=== PATIENT | male | born 1985 ===

== ENCOUNTER 2018-06-22 21:28 | Emergency (ER) | payer MEDICAID, OTHER ==
--- NOTE | 2018-06-22 21:37 | Emergency Department Report ---
Blank Doc - Documentation Documentation: This is a 33-year-old male that presents with bilateral knee pain. Stated it locks up. Denies any injuries. This initial assessment diagnostic orders/clinical plan/treatment(s) is/are subject to change based on patient's health status, clinical progression and re-assessment by fellow clinical providers in the ED. Further treatment and workup at subsequent clinical providers discretion. Patient/guardians urged not to elope from ED s their condition may be serious if not clinically assessed and managed. Initial orders include: 1-Patient sent to [facility] for further evaluation and treatment 2- xrays
--- NOTE | 2018-06-22 22:44 | XRay Report ---
FINAL REPORT PROCEDURE: Right and left knees. TECHNIQUE: Three views of each knee. HISTORY: Bilateral knee pain. COMPARISON: No prior studies are available for comparison. FINDINGS: Right knee: The bones appear intact without fracture or dislocation. The joint spaces appear satisfac tory. The soft tissues are unremarkable. There is no evidence of a knee effusion. Left knee: The bones appear intact without fracture or dislocation. The joint spaces appear satisfact ory. The soft tissues are unremarkable. There is no evidence of a knee effusion. IMPRESSION: Normal studies.
--- NOTE | 2018-06-23 01:16 | Emergency Department Report ---
HPI - General Chief Complaint: Extremity Injury, Lower Time Seen by Provider: 06/22/18 21:35 - HPI HPI: [place] 19 The patient is 33-year-old male presenting with a chief complaint of knee pain and suicidal ideation. Patient takes several months he has episodes where his knees "lockup" and he can move them secondary to pain. Patient describes pain as stabbing in nature. The patient also states he is suicidal ideation for a while and states he wants to "choke" himself out. Patient admits to auditory and visual hallucinations. Location: Bilateral knees, mental state Duration: [See above] Quality: Suicidal Severity: Severe Modifying factors: [see above] Context: [see above] Mode of transportation: [not driving] ED Past Medical Hx - Past Medical History Hx Seizures: Yes Hx Psychiatric Treatment: Yes (Schizophrenia, , Bipolar, PTSD) Hx HIV: Yes - Surgical History Past Surgical History?: Yes Additional Surgical History: Bilateral hip surgeries - Family History Family history: no significant - Social History Smoking Status: Current Every Day Smoker Substance Use Type: None ED Review of Systems ROS: Stated complaint: BILATERAL KNEE PAIN Other details as noted in HPI Constitutional: no symptoms reported Eyes: denies: eye pain ENT: denies: throat pain Respiratory: no symptoms reported Cardiovascular: denies: chest pain Endocrine: no symptoms reported Gastrointestinal: denies: abdominal pain Genitourinary: denies: dysuria Musculoskeletal: arthralgia, myalgia Neurological: denies: headache Psychiatric: auditory hallucinations, visual hallucinations, suicidal thoughts. denies: homicidal thoughts Physical Exam - Physical Exam Vital Signs: Vital Signs 06/22/18 21:40 Temperature 98.2 F Pulse Rate 88 Respiratory 18 Rate Blood Pressure 123/63 O2 Sat by Pulse 99 Oximetry Physical Exam: GENERAL: The patient is well-developed well-nourished male lying on stretcher not appearing to be in acute distress. [] HEENT: Normocephalic. Atraumatic. Extraocular motions are intact. Patient has moist mucous membranes. NECK: Supple. Trachea midline CHEST/LUNGS: Clear to auscultation. There is no respiratory distress noted. HEART/CARDIOVASCULAR: Regular. There is no tachycardia. There is no gallop rub or murmur. ABDOMEN: Abdomen is soft, nontender. Patient has normal bowel sounds. There is no abdominal distention. SKIN: There is no rash. There is no edema. There is no diaphoresis. NEURO: The patient is awake, alert, and oriented. The patient is cooperative. The patient has no focal neurologic deficits. The patient has normal speech MUSCULOSKELETAL: There is no evidence of acute injury. ED Course Vital Signs 06/22/18 21:40 Temperature 98.2 F Pulse Rate 88 Respiratory 18 Rate Blood Pressure 123/63 O2 Sat by Pulse 99 Oximetry ED Medical Decision Making - Lab Data Result diagrams: 06/23/18 01:33 06/23/18 01:33 Laboratory Tests 06/23/18 06/23/18 06/23/18 01:33 01:33 01:33 WBC 4.2 L RBC 3.57 L Hgb 10.3 L Hct 31.0 L MCV 87 MCH 29 MCHC 33 RDW 14.5 Plt Count 243 [place] % (Auto) [employer] Sodium 140 Potassium 3.5 L Chloride 102.7 Carbon Dioxide 24 Anion Gap 17 BUN 15 Creatinine 0.5 L Estimated GFR > 60 BUN/Creatinine Ratio 30 Glucose 123 H Calcium 9.2 Magnesium Total Creatine Kinase Salicylates < 0.3 L Acetaminophen Plasma/Serum Alcohol 06/23/18 06/23/18 06/23/18 01:33 01:33 01:33 WBC RBC Hgb Hct MCV MCH MCHC RDW Plt Count [place] % (Auto) Sodium Potassium Chloride Carbon Dioxide Anion Gap BUN Creatinine Estimated GFR BUN/Creatinine Ratio Glucose Calcium Magnesium 1.90 Total Creatine Kinase 94 Salicylates Acetaminophen < 5.0 L Plasma/Serum Alcohol < 0.01 - Radiology Data Radiology results: report reviewed (bilateral knee x-rays), image reviewed (bilateral knee x-ray) interpreted by me: Bilateral knee x-rays-no acute fracture [facility] [address] [place] [address] XRay Report Signed Patient: JAZMYNE PONCE MR#: [id number] : 1985 Acct:[id number] Age/Sex: 33 / M ADM Date: 06/22/18 Loc: ED Attending Dr: Ordering Physician: PELON CHOE NP Date of Service: 06/22/18 Procedure(s): XR knee BILAT 3V Accession Number(s): [id number] cc: PELON CHOE NP Fluoro Time In Minutes: FINAL REPORT PROCEDURE: Right and left knees. TECHNIQUE: Three views of each knee. HISTORY: Bilateral knee pain. COMPARISON: No prior studies are av ailable for comparison. FINDINGS: Right knee: The bones appear intact without fracture or dislocation. The joint spaces appear satisfactory. The soft tissues are unremarkable. There is no evidence of a knee effusion. Left knee: The bones appear intact without fracture or dislocation. The joint spaces appear satisfactory. The soft tissues are unremarkable. There is no evidence of a knee effusion. IMPRESSION: Normal studies. Transcribed By: MRM Dictated By: NICOLÁS OBREGON MD Electronically Authenticated By: NICOLÁS OBREGON MD Signed Date/Time: 06/22/182243 DD/ 42 TD/TT: 06/22/182242 - Differential Diagnosis suicidal ideation, arthritis, rhabdomyolysis, muscle spasm, hypokalemia Critical care attestation.: If time is entered above; I have spent that time in minutes in the direct care of this critically ill patient, excluding procedure time. ED Disposition Clinical Impression: Suicidal ideation, Bilateral knee pain Disposition: DC/TX-65 PSY HOSP/PSY UNIT Is pt being admited?: No Does the pt Need Aspirin: No Condition: Serious Referrals: GAVINO SANDOVAL MD [Primary Care Provider] - 3-5 Days Time of Disposition: 01:17 (awaiting acceptance)
[2018-06-23 01:47] LABS: Hemoglobin 10.3 gm/dl (11.8-15.2); Mean Corpuscular HGB Conc 33 % (32-34); Mean Corpuscular Volume 87 fl (84-94); Platelet Count 243 K/mm3 (140-440); Red Blood Count 3.57 M/mm3 (3.65-5.03); Red Cell Distribution Width 14.5 % (13.2-15.2)
[2018-06-23 02:07] LABS: BUN/Creatinine Ratio 30; Blood Urea Nitrogen 15 mg/dL (9-20); Calcium 9.2 mg/dL (8.4-10.2); Hemolysis Index 6
[2018-06-23 03:04] LABS: Band Neutrophils # (Manual) 0.1 K/mm3; Basophils % (Manual) 0 % (0.0-1.8); Total Cells Counted 100
[2018-06-23 03:05] LABS: Anisocytosis 1+; Hypochromasia 1+
[2018-06-23 03:36] LABS: Bilirubin,Urine NEG (Negative); Blood,Urine NEG (Negative); Color,Urine Yellow (Yellow); Hyaline Casts,Urine 1 /LPF; Mucus,Urine 3+ /HPF; RBC,Urine < 1.0 /HPF (0.0-6.0)
[2018-06-23 03:42] LABS: Amphetamine Screen,Urine PRESUMPTIVE NEGATIVE; Benzodiazepines Screen,Urine PRESUMPTIVE NEGATIVE; Cannabinoid Screen,Urine PRESUMPTIVE NEGATIVE; Cocaine Screen,Urine PRESUMPTIVE NEGATIVE; Methadone Screen,Urine PRESUMPTIVE NEGATIVE; Opiate Screen,Urine PRESUMPTIVE NEGATIVE
--- NOTE | 2018-06-23 16:22 | Consultation ---
History of Present Illness - Reason for Consult Consult date: 06/23/18 Reason for consult: Mental Health Evaluation Requesting physician: TYLER AMBROSE - Chief Complaint Chief complaint: 'I wanted to choke myself" - History of Present Psychiatric Illness 33-year-old AA male presented to the ER for knee pain and SI's. Today the patient is tangent during the assessment. He stated that he is having several medical issues along with having SI's. He stated that he is suicidal because he's from another "galaxy". Also, he stated something about "demons" that wasn't logical. He stated that he cannot bend his knees, but the patient's Xray was normal (knee). He would not answer questions about his mental health when asked. He denies Hi's and AVH's. This patient is a poor historian at this time. Medications and Allergies Allergies Allergy/AdvReac Type Severity Reaction Status Date / Time naproxen [From Naprosyn] Allergy Hives Verified 06/23/18 16:30 risperidone [From Risperdal] Allergy Hives Verified 06/23/18 16:30 sulfamethoxazole Allergy Hives Verified 06/23/18 16:30 [From Bactrim] trimethoprim [From Bactrim] Allergy Hives Verified 06/23/18 16:30 Past psychiatric history - Past Medical History Past Medical History: HIV/AIDS Past Surgical History: No surgical history - past Psychiatric treatment and history psychiatric treatment history: Several inpatient psy settings in the past. Denies a fam psy hx. - Social History Social history: other (Reside at a transitional home) Mental Status Exam - Vital signs Last Vital Signs Temp 98.4 F 06/23/18 10:00 Pulse 80 06/23/18 10:00 Resp 18 06/23/18 11:00 BP 109/71 06/23/18 10:00 Pulse Ox 99 06/23/18 10:00 - Exam Narrative exam: MSE: Appearance: calm Behavior: regular eye contact Speech: regular rate and tone Mood: "okay" Affect: flat Thought Process: tangential, loose associations Thought Content: denies HI's and AVH's, delusional Motor Activity: in bed Cognition: A/O x3 Insight: poor Judgment: poor Results Result Diagrams: 06/23/18 01:33 06/23/18 01:33 Abnormal lab results 06/23/18 06/23/18 06/23/18 Range/Units 01:33 01:33 01:33 WBC 4.2 L (4.5-11.0) K/mm3 RBC 3.57 L (3.65-5.03) M/mm3 Hgb 10.3 L (11.8-15.2) gm/dl Hct 31.0 L (35.5-45.6) % Eosinophils % (Manual) 9.0 H (0.0-4.3) % Lymphocytes # (Manual) 0.8 L (1.2-5.4) K/mm3 Potassium 3.5 L (3.6-5.0) mmol/L Creatinine 0.5 L (0.8-1.5) mg/dL Glucose 123 H (75-100) mg/dL Salicylates < 0.3 L (2.8-20.0) mg/dL Acetaminophen (10.0-30.0) ug/mL 06/23/18 Range/Units 01:33 WBC (4.5-11.0) K/mm3 RBC (3.65-5.03) M/mm3 Hgb (11.8-15.2) gm/dl Hct (35.5-45.6) % Eosinophils % (Manual) (0.0-4.3) % Lymphocytes # (Manual) (1.2-5.4) K/mm3 Potassium (3.6-5.0) mmol/L Creatinine (0.8-1.5) mg/dL Glucose (75-100) mg/dL Salicylates (2.8-20.0) mg/dL Acetaminophen < 5.0 L (10.0-30.0) ug/mL All other labs normal. Assessment and Plan Assessment and plan: Impression: Unspecified Mood DO with psy features. Today the patient is calm, but tangent during the assessment. DDx: Bipolar DO with psychosis, Schizoaffective DO, R/O Factitious DO Recommendation/Plan: Continue 1013 and start Zyprexa 5 mg PO HS for mood/psychosis. Discussed possible metabolic side effects of Zyprexa with the patient reference Zyprexa. Dispo: The patient was referred to inpatient psy services. Staffed with Dr Jarrell.
--- NOTE | 2018-06-24 14:24 | Progress Note ---
Subjective - Reason for Consult Consult date: 06/24/18 Reason for consult: Psychiatric Follow-up Evaluation - Chief Complaint Chief complaint: "Messed up" Patient is a 33-year-old AA male presented to the ER for knee pain and SI's. Today the patient is guarded and anxious during the assessment. He stated, " I'm here for being disorganized and stressed out." He continues to endorse SI's with plan to choke self. Also, patient endorses paranoid delusions, auditory/visual hallucinations. He states, " I see spirits and hear demons." He denies HI's. Reports medication compliance. No side effects noted/reported. Mental Status Exam - Vital signs Last Vital Signs Temp 97.6 F 06/24/18 01:03 Pulse 76 06/24/18 08:23 Resp 16 06/24/18 01:03 BP 106/70 06/24/18 08:23 Pulse Ox 100 06/24/18 08:23 - Exam Narrative exam: Mental Status Exam Appearance: calm Behavior: regular eye contact Speech: regular rate and soft tone; mumbles at times Mood: "messed up" Affect: flat Thought Process: tangential, loose associations Thought Content: denies HI's ; + A/VH's and paranoid delusional Motor Activity: in bed Cognition: A/O x3 Insight: poor Judgment: poor Assessment and Plan Impression: Unspecified Mood DO with psy features. Today the patient is guarded and anxious during the assessment. Mood is labile. Patient endorses psychosis. DDx: Bipolar DO with psychosis, Schizoaffective DO, R/O Factitious DO Recommendation/Plan: 1. Continue 1013. 2. Continue Zyprexa 5 mg PO HS for mood/psychosis. Discussed possible metabolic side effects of Zyprexa with the patient reference Zyprexa. Disposition: The patient was referred to inpatient psychiatric services. Staffed with Dr. Sandoval Xie.
[2018-06-24 15:53] VITALS: BP 106/61
== END 2018-06-24 18:34 ==
LOC: ED 21:28
DX: M25.562 Pain in left knee (principal); M25.561 Pain in right knee; F39 Unspecified mood [affective] disorder; F31.9 Bipolar disorder, unspecified; F43.10 Post-traumatic stress disorder, unspecified; F20.9 Schizophrenia, unspecified; F17.200 Nicotine dependence, unspecified, uncomplicated; Z98.890 Other specified postprocedural states; Z88.6 Allergy status to analgesic agent; Z88.8 Allergy status to other drugs, medicaments and biological substances; Z88.2 Allergy status to sulfonamides
CPT/HCPCS: 36415; 73562; 80048; 80307; 81001; 82550; 83735; 85007; 85025; G0480; 80320